=== PATIENT | male | born 1960 | race Caucasian/White ===

== ENCOUNTER → 2024-10-10 | Outpatient (CLI) | payer OTHER ==
[2024-10-10 11:04] LABS: ABG BASE EXCESS 1.2 mmol/L (-2.0-3.0); ABG HCO3 25.7 mmol/L (21.0-28.0); ABG OXYGEN SATURATION 95.6 % (94.0-98.0); ABG PCO2 40 mmHg (35-48); ABG PH 7.421 (7.350-7.450); CARBON MONOXIDE 0.3 % (0.5-1.5); DEVICE COMMENT LR RA; HHb 4.4; PO2, ARTERIAL BG 77.6 mmHg (83.0-108.0)
== END | disposition home or self-care (01) ==
LOC: LAB 08:05 → EDSEX 08:05
PROVIDERS: ATTEND Internal Medicine Pulmonary Disease
DX: E66.2 Morbid (severe) obesity with alveolar hypoventilation (principal); Z99.11 Dependence on respirator [ventilator] status
CPT/HCPCS: 36600; 82435; 82803; 82947; 83605; 84132; 84295; 85018